=== PATIENT | female | born 2000 | race Caucasian/White ===

== ENCOUNTER → 2021-07-29 | Day surgery (SDC) | payer OTHER ==
[~2021-07-29] VITALS: Ht 157.5 cm; Wt 48.5 kg
[~2021-07-29] MED LIST: GAS-X125 M1 PO; HYDRALAZINE 10M10 MG PO; LESSINA-28 TAB1 EACH PO; NORCO 5-325 TA1 EACH PO; ONDANSETRON ODT8 MG PO; ZOLOFT50 M1 PO
[2021-07-29 11:00] LABS: HCG (URINE) SCREEN NEGATIVE (NEGATIVE)
[2021-07-29 11:31] LABS: HCT 38.7 % (37.0-47.0); HGB 12.5 g/dl (12.5-16.0); MCH 28.4 pg (25.0-31.0); MCHC 32.3 g/dL (32.0-36.0); MPV 9.9 fL (6.0-9.5); RBC 4.4 M/uL (4.20-5.40); RDW 11.4 % (11.5-14.0); WBC 11.2 K/uL (4.0-10.5)
[2021-07-29 12:09] LABS: ALBUMIN 3.9 g/dL (3.4-5.0); BILIRUBIN - TOTAL 0.4 mg/dL (0.2-1.0); BUN/CREAT RATIO (CALC) 13.8 RATIO; CREATININE 0.65 mg/dL (0.51-0.95); GLOBULIN (CALCULATION) 3.8 g/dL; TOTAL PROTEIN 7.7 g/dL (6.4-8.2)
== END | disposition home or self-care (01) ==
LOC: FAS 09:39
PROVIDERS: Surgery
DX: K80.10 Calculus of gallbladder with chronic cholecystitis without obstruction (principal); K82.8 Other specified diseases of gallbladder; F31.9 Bipolar disorder, unspecified; F41.9 Anxiety disorder, unspecified; Z79.899 Other long term (current) drug therapy
CPT/HCPCS: 36415; 74300; 80053; 84703; C1758; J1885; J2250; J2405; J2704; J2710; J3010; J7120; Q9967